=== PATIENT | female | born 1975 | race Caucasian/White ===

== ENCOUNTER 2022-09-11 14:25 | Emergency (ER) | payer OTHER ==
[~2022-09-11] VITALS: Ht 160 cm; Wt 69.6 kg
[2022-09-11 14:42] VITALS: BP 132/66
--- NOTE | 2022-09-11 15:30 | NUR ---
46/F PRESENTS TO ED WITH C/O OF COUGH, CONGESTION, SORE THROAT AND BODY ACHES X2 DAYS. PATIENT STATES SHE IS REGULARLY EXPOSED TO SICK PATIENTS AT WORK AND BELIEVES IT MAY BE RELATED. PATIENT DENEIS SOB, CP, FEVERS, N/V/D.
--- NOTE | 2022-09-11 15:42 | NUR ---
FLU AND PETTY SWABS COLLECTED AND HANDED TO LARDER COOK
--- NOTE | 2022-09-11 15:48 | NUR ---
Patient discharged with v/s stable. Written and verbal after care instructions ABOUT URI given and explained. Patient verbalized understanding. Ambulatory with steady gait. All questions addressed prior to discharge. Advised to follow up with PMD.
== END 2022-09-11 15:48 | disposition home or self-care (01) ==
LOC: MED 14:25
DX: J06.9 Acute upper respiratory infection, unspecified (principal); Z20.822 Contact with and (suspected) exposure to COVID-19
CPT/HCPCS: 99283

== ENCOUNTER 2022-09-28 21:17 | Emergency (ER) | payer OTHER ==
[~2022-09-28] VITALS: Ht 160 cm; Wt 70.3 kg
[2022-09-28 22:10] VITALS: BP 120/71
--- NOTE | 2022-09-28 22:10 | NUR ---
TO LOBBY A/W BED AMBULATORY SWABS FOR PETTY, INFLUENZA SENT TO LAB
--- NOTE | 2022-09-28 23:05 | NUR ---
PT TAKEN TO BED 1
--- NOTE | 2022-09-28 23:10 | NUR ---
COUGH, SORETHROAT, DIFF OF SWALLOWING, FOR 2 WEEKS
[2022-09-29] MEDS ORDERED: PROM118S5 PO (00:17)
[2022-09-29] MEDS ORDERED: MUC600 PO (00:17)
[2022-09-29] MEDS ORDERED: PSEU120T23 PO (00:17)
[2022-09-29] MEDS ORDERED: AZIT250T4 PO (00:18)
--- NOTE | 2022-09-29 01:32 | NUR ---
Patient discharged with v/s stable. Written and verbal after care instructions given and explained. Patient verbalized understanding. Ambulatory with steady gait. All questions addressed prior to discharge. Advised to follow up with PMD.
== END 2022-09-29 01:32 | disposition home or self-care (01) ==
LOC: MED 21:17
DX: J20.9 Acute bronchitis, unspecified (principal); Z20.822 Contact with and (suspected) exposure to COVID-19
CPT/HCPCS: 99283

== ENCOUNTER 2023-03-05 17:34 | Emergency (ER) | payer OTHER ==
[~2023-03-05] VITALS: Ht 160 cm; Wt 72.6 kg
[~2023-03-05 17:34] MED LIST: AZIT250T4 PO; MUC600 PO; PROM118S5 PO; PSEU120T23 PO
[2023-03-05 17:47] VITALS: BP 136/92
--- NOTE | 2023-03-05 17:47 | NUR ---
PT TO BED
[2023-03-05 18:57] LABS: BASOPHILS % (AUTO) 0.5 % (0.0-2.0); EOSINOPHILS # (AUTO) 0.2 K/uL (0-0.4); EOSINOPHILS % (AUTO) 2.6 % (0.0-4.0); HEMATOCRIT 38.3 % (36-48); HEMOGLOBIN 12.9 g/dL (12.0-16.0); LYMPHOCYTES # (AUTO) 2.5 K/uL (2.5-16.5); LYMPHOCYTES % (AUTO) 32.1 % (20.5-51.1); MEAN CORPUSCULAR HEMOGLOBIN 28 pg (27-31); MEAN CORPUSCULAR HGB CONC 34 g/dL (33-37); MEAN CORPUSCULAR VOLUME 82.3 fL (80-94); MONOCYTES # (AUTO) 0.5 K/uL (0.8-1.0); MONOCYTES % (AUTO) 6.8 % (1.7-9.3); NEUTROPHILS # (AUTO) 4.5 K/uL (1.8-7.7); PLATELET COUNT (AUTO) 278 K/uL (140-450); RED BLOOD CELL COUNT(AUTO) 4.65 MIL/uL (4.20-5.40); RED CELL DISTRIBUTION WIDTH 13.4 % (11.6-13.7); WHITE BLOOD COUNT (AUTO) 7.8 K/uL (4.8-10.8)
--- NOTE | 2023-03-05 19:00 | NUR ---
DIZZINESS TODAY SUDDEN ONSET AT WORK. SUDDENLY FELT RINGING IN THE EARS. 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
[2023-03-05 19:15] LABS: ALBUMIN 4.1 g/dL (3.4-5.0); ANION GAP 6.4 (8-16); ASPARTATE AMINOTRANSFERASE 27 U/L (15-37); CARBON DIOXIDE 33.3 mmol/L (21-32); CHLORIDE 103 mmol/L (98-107); CREATININE 0.7 mg/dL (0.6-1.3); GFR ARICAN-AMERICAN 115 mL/min (>90); GLUCOSE 96 mg/dL (74-106); POTASSIUM 3.7 mmol/L (3.5-5.1); SODIUM SERUM 139 mmol/L (136-145); TOTAL BILIRUBIN 0.3 mg/dL (0.0-1.0); UREA NITROGEN, BLOOD 11 mg/dL (7-18)
--- NOTE | 2023-03-05 20:00 | NUR ---
PT WANTED TO KNOW THE RESULT. NOTIFIED
[2023-03-05] MEDS ORDERED: MECL-303 PO (20:36)
[2023-03-05] MEDS ORDERED: IBUP-2213 PO (20:36)
[2023-03-05 20:55] VITALS: BP 130/68
--- NOTE | 2023-03-05 20:55 | NUR ---
Patient discharged with v/s stable. Written and verbal after care instructions given and explained. Patient alert, oriented and verbalized understanding of instructions. Ambulatory with steady gait. All questions addressed prior to discharge. ID band removed. Patient advised to follow up with PMD. Rx of ibuprofen and meclizine given. Patient educated on indication of medication including possible reaction and side effects. Opportunity to ask questions provided and answered.
== END 2023-03-05 20:55 | disposition home or self-care (01) ==
LOC: MED 17:34
DX: R42 Dizziness and giddiness (principal); R07.89 Other chest pain; Z79.899 Other long term (current) drug therapy
CPT/HCPCS: 36415; 71045; 80053; 84484; 85025; 85379; 93005; 99285

== ENCOUNTER 2023-07-24 17:46 | Emergency (ER) | payer OTHER ==
[~2023-07-24] VITALS: Ht 160 cm; Wt 75.4 kg
[~2023-07-24 17:46] MED LIST changes: +IBUP-2213 PO; +MECL-303 PO
[2023-07-24 18:20] VITALS: BP 129/72; PULSE 67; RESP 20; TEMP 97.8; O2SAT 100
== END 2023-07-24 20:00 | disposition left against medical advice (07) ==
LOC: MED 17:46
DX: J06.9 Acute upper respiratory infection, unspecified (principal); Z79.899 Other long term (current) drug therapy
CPT/HCPCS: 99281

== ENCOUNTER 2023-11-10 01:30 | Emergency (ER) | payer OTHER ==
[~2023-11-10] VITALS: Ht 160 cm; Wt 71.7 kg
[2023-11-10 01:50] VITALS: BP 132/90; PULSE 69; RESP 16; TEMP 98.4; O2SAT 99
[2023-11-10] MEDS ORDERED: ONDANSETRON 4 MG/2 ML VIAL IVP ONE (01:55)
[2023-11-10] MEDS ORDERED: KETOROLAC 30 MG/ML VIAL IVP ONE ×2 (01:55→03:10)
[2023-11-10] MEDS ORDERED: MORPHINE SULFATE 4 MG/ML SYR IVP ONE (01:55)
[2023-11-10 02:06] LABS: BASOPHILS # (AUTO) 0.1 K/uL (0.00-0.22); BASOPHILS % (AUTO) 0.4 % (0.0-2.0); EOSINOPHILS # (AUTO) 0.1 K/uL (0-0.4); EOSINOPHILS % (AUTO) 0.9 % (0.0-4.0); HEMATOCRIT 40.9 % (36-48); HEMOGLOBIN 13.7 g/dL (12.0-16.0); LYMPHOCYTES # (AUTO) 2.4 K/uL (2.5-16.5); LYMPHOCYTES % (AUTO) 20.2 % (20.5-51.1); MEAN CORPUSCULAR HEMOGLOBIN 28 pg (27-31); MEAN CORPUSCULAR HGB CONC 34 g/dL (33-37); MEAN CORPUSCULAR VOLUME 82.7 fL (80-94); MONOCYTES # (AUTO) 0.7 K/uL (0.8-1.0); MONOCYTES % (AUTO) 6.3 % (1.7-9.3); NEUTROPHILS # (AUTO) 8.5 K/uL (1.8-7.7); NEUTROPHILS % (AUTO) 72.2 % (42.2-75.2); PLATELET COUNT (AUTO) 301 K/uL (140-450); RED BLOOD CELL COUNT(AUTO) 4.94 MIL/uL (4.20-5.40); RED CELL DISTRIBUTION WIDTH 13.9 % (11.6-13.7); WHITE BLOOD COUNT (AUTO) 11.8 K/uL (4.8-10.8)
[2023-11-10 02:07] LABS: APPEARANCE,URINE CLOUDY (CLEAR); BILIRUBIN,URINE NEGATIVE (NEGATIVE); BLOOD, URINE 3+ (NEGATIVE); LEUKOCYTE ESTERASE ,URINE NEGATIVE (NEGATIVE); NITRITE, URINE NEGATIVE (NEGATIVE); PH,URINE 8.5 (5.0-9.0); PROTEIN,URINE TRACE (NEGATIVE); UGLUCOSE NEGATIVE (NEGATIVE)
[2023-11-10 02:14] LABS: COLOR,URINE SLIGHT BLOODY (YELLOW)
[2023-11-10 02:24] LABS: RBC,URINE TOO NUMEROUS TO COUN /HPF (0-5)
[2023-11-10 02:25] LABS: BACTERIA,URINE FEW /HPF (None Seen); SQUAMOUS EPITHELIAL CELL,UR 0-3 (FEW) /LPF (0-3 (FEW)); URINE AMORPHOUS PHOSPHATES 1+ /HPF (None Seen); WBC,URINE 0-5 /HPF (0-5)
[2023-11-10 02:31] LABS: ANION GAP 11.1 (8-16); BILIRUBIN,DIRECT 0.1 mg/dL (0.0-0.3); CALCIUM 9.6 mg/dL (8.5-10.1); CARBON DIOXIDE 29.6 mmol/L (21-32); CREATININE 0.9 mg/dL (0.6-1.3); POTASSIUM 3.7 mmol/L (3.5-5.1); TOTAL BILIRUBIN 0.4 mg/dL (0.0-1.0); TOTAL PROTEIN, SERUM 8.5 g/dL (6.4-8.2)
[2023-11-10] MEDS ORDERED: HYDROcodone/APAP 5/325 MG 1 TAB TAB PO ONE (03:10)
[2023-11-10] MEDS ORDERED: NAPR-54 PO (05:51)
[2023-11-10] MEDS ORDERED: ONDA-188 PO (05:51)
[2023-11-10] MEDS ORDERED: ACET-8905 PO (05:51)
[2023-11-10] MEDS ORDERED: TAMS0.4C96 PO (05:51)
[2023-11-10] MEDS ORDERED: CEPH-588 PO (05:52)
[2023-11-10 06:00] VITALS: BP 120/76; PULSE 77; RESP 16; TEMP 98; O2SAT 97
== END 2023-11-10 06:00 | disposition home or self-care (01) ==
LOC: MED 01:30
DX: N20.1 Calculus of ureter (principal); Z79.899 Other long term (current) drug therapy
CPT/HCPCS: 36415; 74176; 80048; 80076; 81001; 81025; 83690; 85025; 96365; 96375; 96376; 99285; J1885; J2270; J2405

== ENCOUNTER 2023-11-26 13:02 | Emergency (ER) | payer OTHER ==
[~2023-11-26] VITALS: Ht 160 cm; Wt 71.7 kg
[~2023-11-26 13:02] MED LIST changes: +ACET-8905 PO; +CEPH-588 PO; +NAPR-54 PO; +ONDA-188 PO; +TAMS0.4C96 PO
[2023-11-26 13:19] VITALS: BP 109/73; PULSE 76; RESP 18; TEMP 98; O2SAT 97
[2023-11-26 14:11] LABS: BASOPHILS # (AUTO) 0.1 K/uL (0.00-0.22); BASOPHILS % (AUTO) 0.7 % (0.0-2.0); EOSINOPHILS # (AUTO) 0.2 K/uL (0-0.4); EOSINOPHILS % (AUTO) 1.7 % (0.0-4.0); HEMATOCRIT 39.3 % (36-48); HEMOGLOBIN 13.4 g/dL (12.0-16.0); LYMPHOCYTES # (AUTO) 2.4 K/uL (2.5-16.5); LYMPHOCYTES % (AUTO) 20.6 % (20.5-51.1); MEAN CORPUSCULAR HEMOGLOBIN 28 pg (27-31); MEAN CORPUSCULAR HGB CONC 34 g/dL (33-37); MEAN CORPUSCULAR VOLUME 82.7 fL (80-94); MONOCYTES # (AUTO) 0.9 K/uL (0.8-1.0); MONOCYTES % (AUTO) 7.3 % (1.7-9.3); NEUTROPHILS # (AUTO) 8.2 K/uL (1.8-7.7); NEUTROPHILS % (AUTO) 69.7 % (42.2-75.2); PLATELET COUNT (AUTO) 286 K/uL (140-450); RED BLOOD CELL COUNT(AUTO) 4.76 MIL/uL (4.20-5.40); RED CELL DISTRIBUTION WIDTH 13.8 % (11.6-13.7); WHITE BLOOD COUNT (AUTO) 11.8 K/uL (4.8-10.8)
[2023-11-26 14:18] LABS: APPEARANCE,URINE SL CLOUDY (CLEAR); BILIRUBIN,URINE NEGATIVE (NEGATIVE); BLOOD, URINE 3+ (NEGATIVE); COLOR,URINE YELLOW (YELLOW); LEUKOCYTE ESTERASE ,URINE TRACE (NEGATIVE); NITRITE, URINE NEGATIVE (NEGATIVE); PROTEIN,URINE 1+ (NEGATIVE); UGLUCOSE NEGATIVE (NEGATIVE); UROBILINOGEN,URINE 0.2 EU/dL (0.2 - 1)
[2023-11-26 14:29] LABS: BACTERIA,URINE FEW /HPF (None Seen); RBC,URINE 20-50 /HPF (0-5); SQUAMOUS EPITHELIAL CELL,UR 0-3 (FEW) /LPF (0-3 (FEW)); WBC,URINE 0-5 /HPF (0-5)
[2023-11-26 14:31] LABS: ALBUMIN 3.8 g/dL (3.4-5.0); ANION GAP 9.3 (8-16); CALCIUM 9.1 mg/dL (8.5-10.1); CARBON DIOXIDE 31.5 mmol/L (21-32); CREATININE 0.9 mg/dL (0.6-1.3); POTASSIUM 3.8 mmol/L (3.5-5.1); TOTAL BILIRUBIN 0.4 mg/dL (0.0-1.0); TOTAL PROTEIN, SERUM 8.3 g/dL (6.4-8.2)
[2023-11-26] MEDS ORDERED: KETOROLAC 30 MG/ML VIAL IM ONE (15:40)
[2023-11-26] MEDS ORDERED: IBUP-2213 PO (16:42)
[2023-11-26] MEDS ORDERED: CEPH-588 PO (16:47)
== END 2023-11-26 16:55 | disposition home or self-care (01) ==
LOC: MED 13:02
DX: N23 Unspecified renal colic (principal); N39.0 Urinary tract infection, site not specified; R31.9 Hematuria, unspecified; Z79.899 Other long term (current) drug therapy; Z79.2 Long term (current) use of antibiotics; Z79.1 Long term (current) use of non-steroidal anti-inflammatories (NSAID)
CPT/HCPCS: 36415; 80053; 81001; 81025; 83690; 85025; 96372; 99283; J1885

== ENCOUNTER 2024-05-10 21:43 | Emergency (ER) | payer OTHER ==
[~2024-05-10] VITALS: Ht 160 cm; Wt 72.1 kg
[~2024-05-10 21:43] MED LIST changes: +NAPR-337 PO; -NAPR-54 PO
[2024-05-10 21:49] VITALS: BP 130/82; PULSE 84; RESP 18; TEMP 98.8; O2SAT 98
[2024-05-10] MEDS: NACL 0.9% 1,000 ML IV ONE (23:52)
[2024-05-10 23:53] LABS: BASOPHILS # (AUTO) 0.1 K/uL (0.00-0.22); BASOPHILS % (AUTO) 0.4 % (0.0-2.0); EOSINOPHILS % (AUTO) 0.1 % (0.0-4.0); HEMATOCRIT 38.8 % (36-48); HEMOGLOBIN 12.5 g/dL (12.0-16.0); LYMPHOCYTES # (AUTO) 1.2 K/uL (2.5-16.5); LYMPHOCYTES % (AUTO) 8.2 % (20.5-51.1); MEAN CORPUSCULAR HEMOGLOBIN 27 pg (27-31); MEAN CORPUSCULAR HGB CONC 32 g/dL (33-37); MEAN CORPUSCULAR VOLUME 83.9 fL (80-94); MONOCYTES # (AUTO) 0.6 K/uL (0.8-1.0); MONOCYTES % (AUTO) 4.3 % (1.7-9.3); NEUTROPHILS # (AUTO) 12.2 K/uL (1.8-7.7); PLATELET COUNT (AUTO) 289 K/uL (140-450); RED BLOOD CELL COUNT(AUTO) 4.62 MIL/uL (4.20-5.40); RED CELL DISTRIBUTION WIDTH 13.9 % (11.6-13.7); WHITE BLOOD COUNT (AUTO) 14.1 K/uL (4.8-10.8)
[2024-05-11] LABS: ANION GAP 14.1 (8-16); CALCIUM 9.3 mg/dL (8.5-10.1); CARBON DIOXIDE 26.7 mmol/L (21-32); CREATININE 0.8 mg/dL (0.6-1.3); POTASSIUM 3.8 mmol/L (3.5-5.1)
[2024-05-11 00:06] LABS: APPEARANCE,URINE CLEAR (CLEAR); BILIRUBIN,URINE NEGATIVE (NEGATIVE); BLOOD, URINE 1+ (NEGATIVE); COLOR,URINE YELLOW (YELLOW); LEUKOCYTE ESTERASE ,URINE TRACE (NEGATIVE); NITRITE, URINE NEGATIVE (NEGATIVE); PROTEIN,URINE NEGATIVE (NEGATIVE); UGLUCOSE NEGATIVE (NEGATIVE); UROBILINOGEN,URINE 0.2 EU/dL (0.2 - 1)
[2024-05-11 00:07] LABS: ALBUMIN 4.1 g/dL (3.4-5.0); BILIRUBIN,DIRECT 0.1 mg/dL (0.0-0.3); TOTAL BILIRUBIN 0.3 mg/dL (0.0-1.0); TOTAL PROTEIN, SERUM 7.7 g/dL (6.4-8.2)
[2024-05-11 00:11] LABS: BACTERIA,URINE >30 (MANY) /HPF (None Seen); MUCUS,URINE 1+ /LPF (None Seen); RBC,URINE 0-5 /HPF (0-5); SQUAMOUS EPITHELIAL CELL,UR 0-3 (FEW) /LPF (0-3 (FEW)); WBC,URINE 0-5 /HPF (0-5)
[2024-05-11] MEDS: MORPHINE SULFATE 4 MG/ML SYR IVP ONE (00:30)
[2024-05-11] MEDS: ONDANSETRON 4 MG/2 ML VIAL IVP ONE (00:31)
[2024-05-11] MEDS ORDERED: cefTRIAXone 1,000 MG VIAL ONE (01:46)
[2024-05-11] MEDS ORDERED: NAPR-337 PO (04:08)
[2024-05-11] MEDS ORDERED: CIPR500T4 PO (04:08)
[2024-05-11 04:21] VITALS: BP 131/70; PULSE 87; RESP 18; TEMP 98; O2SAT 99
== END 2024-05-11 04:21 | disposition home or self-care (01) ==
LOC: MED 21:43
DX: N39.0 Urinary tract infection, site not specified (principal); Z87.442 Personal history of urinary calculi; Z79.1 Long term (current) use of non-steroidal anti-inflammatories (NSAID); Z79.2 Long term (current) use of antibiotics; Z79.899 Other long term (current) drug therapy
CPT/HCPCS: 36415; 80048; 80076; 81001; 81025; 85025; 87040; 87086; 96361; 96365; 96375; 99284; J0696; J2270; J2405; J7030

== ENCOUNTER 2024-06-27 00:29 | Emergency (ER) | payer OTHER ==
[~2024-06-27] VITALS: Ht 160 cm; Wt 68.5 kg
[~2024-06-27 00:29] MED LIST changes: +CIPR500T4 PO
[2024-06-27 00:39] VITALS: BP 113/70; PULSE 88; RESP 16; TEMP 97.8
[2024-06-27 00:58] LABS: APPEARANCE,URINE CLEAR (CLEAR); BILIRUBIN,URINE NEGATIVE (NEGATIVE); BLOOD, URINE NEGATIVE (NEGATIVE); COLOR,URINE YELLOW (YELLOW); LEUKOCYTE ESTERASE ,URINE NEGATIVE (NEGATIVE); NITRITE, URINE NEGATIVE (NEGATIVE); PH,URINE 6.5 (5.0-9.0); PROTEIN,URINE NEGATIVE (NEGATIVE); UGLUCOSE NEGATIVE (NEGATIVE); UROBILINOGEN,URINE 0.2 EU/dL (0.2 - 1)
[2024-06-27 01:10] VITALS: BP 113/70; PULSE 88; RESP 16; TEMP 97.8
[2024-06-27] MEDS ORDERED: PYR100 PO (01:10)
[2024-06-27] MEDS ORDERED: NITR100C7 PO (01:10)
== END 2024-06-27 01:24 | disposition home or self-care (01) ==
LOC: MED 00:29
DX: N30.90 Cystitis, unspecified without hematuria (principal); Z79.1 Long term (current) use of non-steroidal anti-inflammatories (NSAID); Z79.2 Long term (current) use of antibiotics; Z79.899 Other long term (current) drug therapy
CPT/HCPCS: 81003; 99283

== ENCOUNTER 2024-07-19 21:48 | Emergency (ER) | payer OTHER ==
[~2024-07-19] VITALS: Ht 160 cm; Wt 72.6 kg
[~2024-07-19 21:48] MED LIST changes: +NITR100C7 PO; +PYR100 PO
[2024-07-19 22:02] VITALS: PULSE 95; RESP 18; TEMP 98.2; O2SAT 98
[2024-07-19 22:30] LABS: APPEARANCE,URINE CLEAR (CLEAR); BILIRUBIN,URINE 1+ (NEGATIVE); BLOOD, URINE 3+ (NEGATIVE); COLOR,URINE YELLOW (YELLOW); LEUKOCYTE ESTERASE ,URINE NEGATIVE (NEGATIVE); NITRITE, URINE NEGATIVE (NEGATIVE); PROTEIN,URINE 1+ (NEGATIVE); UGLUCOSE NEGATIVE (NEGATIVE)
[2024-07-19] MEDS: ACETAMINOPHEN EXTRA STRENGTH 500 MG TAB PO ONE (22:30)
[2024-07-19] MEDS: KETOROLAC 30 MG/ML VIAL IM ONE (22:31)
[2024-07-19 22:36] LABS: ICTOTEST POSITIVE (NEGATIVE)
[2024-07-19 22:37] LABS: BACTERIA,URINE 10-30 (MOD) /HPF (None Seen); MUCUS,URINE 1+ /LPF (None Seen); RBC,URINE TOO NUMEROUS TO COUN /HPF (0-5); SQUAMOUS EPITHELIAL CELL,UR 0-3 (FEW) /LPF (0-3 (FEW)); WBC,URINE 0-5 /HPF (0-5)
[2024-07-19 22:41] LABS: BASOPHILS % (AUTO) 0.2 % (0.0-2.0); EOSINOPHILS # (AUTO) 0.1 K/uL (0-0.4); EOSINOPHILS % (AUTO) 1.2 % (0.0-4.0); HEMATOCRIT 37.4 % (36-48); HEMOGLOBIN 12.4 g/dL (12.0-16.0); LYMPHOCYTES # (AUTO) 2.7 K/uL (2.5-16.5); LYMPHOCYTES % (AUTO) 26.4 % (20.5-51.1); MEAN CORPUSCULAR HEMOGLOBIN 27 pg (27-31); MEAN CORPUSCULAR HGB CONC 33 g/dL (33-37); MEAN CORPUSCULAR VOLUME 80.6 fL (80-94); MONOCYTES # (AUTO) 0.8 K/uL (0.8-1.0); MONOCYTES % (AUTO) 8.1 % (1.7-9.3); NEUTROPHILS # (AUTO) 6.6 K/uL (1.8-7.7); NEUTROPHILS % (AUTO) 64.1 % (42.2-75.2); PLATELET COUNT (AUTO) 265 K/uL (140-450); RED BLOOD CELL COUNT(AUTO) 4.64 MIL/uL (4.20-5.40); RED CELL DISTRIBUTION WIDTH 13.8 % (11.6-13.7); WHITE BLOOD COUNT (AUTO) 10.3 K/uL (4.8-10.8)
[2024-07-19 22:49] LABS: CALCIUM 9.4 mg/dL (8.5-10.1); CARBON DIOXIDE 32.2 mmol/L (21-32); CREATININE 0.9 mg/dL (0.6-1.3); POTASSIUM 3.2 mmol/L (3.5-5.1)
[2024-07-19] MEDS ORDERED: CEFP200T20 PO (23:05)
[2024-07-19] MEDS ORDERED: ONDA-188 PO (23:05)
[2024-07-19 23:15] VITALS: BP 136/73; PULSE 98; RESP 18; TEMP 98.2; O2SAT 98
== END 2024-07-19 23:15 | disposition home or self-care (01) ==
LOC: MED 21:48
DX: R30.9 Painful micturition, unspecified (principal); R10.31 Right lower quadrant pain; Z87.442 Personal history of urinary calculi; Z79.899 Other long term (current) drug therapy
CPT/HCPCS: 36415; 80048; 81001; 81025; 85025; 87086; 96372; 99283; J1885